=== PATIENT | female | born 1990 | race Caucasian/White ===

== ENCOUNTER → 2021-08-18 | Outpatient (REF) | payer OTHER ==
[2021-08-18 22:00] LABS: GC DNA AMPLIFICATION NEGATIVE (NEGATIVE)
== END ==
LOC: M WUC 19:38
PROVIDERS: ATTEND Physician Assistant
DX: N76.0 Acute vaginitis (principal)

== ENCOUNTER 2021-12-20 07:21 | Day surgery (SDC) | payer OTHER ==
[~2021-12-20] VITALS: Ht 167.6 cm; Wt 71.2 kg
[~2021-12-20 07:21] MED LIST: LR 1,000 ML IV ONE
[2021-12-20 07:51] LABS: HEMATOCRIT 41.3 % (36.0-47.0); HEMOGLOBIN 13.6 g/dl (12.0-15.5); MEAN CORPUSCULAR HEMOGLOBIN 31.3 pg (27.0-33.0); MEAN CORPUSCULAR HGB CONC 32.9 g/dl (32.0-36.5); MEAN CORPUSCULAR VOLUME 95.2 fl (80.0-96.0); PLATELET COUNT, AUTOMATED 272 10^3/uL (150-450); RED BLOOD COUNT 4.34 10^6/uL (4.00-5.40); WHITE BLOOD COUNT 3.6 10^3/uL (4.0-10.0)
[2021-12-20] MEDS ORDERED: propofoL 200 MG/20 ML VIAL As Ordered ONE ×2 (08:09→09:26)
[2021-12-20] MEDS ORDERED: LIDOCAINE 2% 100MG/5ML SDV (FOR ANES.) As Ordered ONE (08:09)
[2021-12-20] MEDS ORDERED: KETOROLAC 60MG 2ML VIAL As Ordered ONE (08:09)
[2021-12-20] MEDS ORDERED: dexameTHASONE 4 MG/ML 1ML VIAL (J1100 PER 1MG) As Ordered ONE (08:09)
[2021-12-20] MEDS ORDERED: ONDANSETRON 4MG/2ML VIAL As Ordered ONE (08:09)
[2021-12-20] MEDS ORDERED: fentaNYL 100 MCG/2 ML INJECTION As Ordered ONE (08:10)
[2021-12-20] MEDS ORDERED: MIDAZOLAM INJ 2MG/2ML VIAL (J2250 PER 1MG) As Ordered ONE (08:10)
[2021-12-20 08:28] LABS: HCG, SERUM QUALITATIVE NEGATIVE (NEGATIVE)
[2021-12-20] MEDS ORDERED: LIDOCAINE W/EPINEPHRINE 1% 20ML VIAL As Ordered ONE (09:02)
[2021-12-20] MEDS ORDERED: IODINE STRONG SOLN 15 ML BTL As Ordered ONE (09:02)
[2021-12-20 10:30] VITALS: BP 111/58
[2021-12-20] MEDS ORDERED: METOCLOPRAMIDE INJ 10MG/2ML VIAL (J2765 PER 1) IV PRN (10:30)
[2021-12-20] MEDS ORDERED: oxyCODONE 5MG TAB PO PRN (10:30)
[2021-12-20] MEDS ORDERED: ONDANSETRON 4MG/2ML VIAL IV PRN (10:30)
[2021-12-20] MEDS ORDERED: LR 1,000 ML IV SCH (10:30)
== END 2021-12-20 10:48 | disposition home or self-care (01) ==
LOC: M SDC 07:21
PROVIDERS: ATTEND Obstetrics & Gynecology
DX: N87.1 Moderate cervical dysplasia (principal)
CPT/HCPCS: 36415; 57522; 84703; 85027; 88307; J1100; J1885; J2250; J2405; J3010

== ENCOUNTER 2022-04-08 08:05 | Emergency (ER) | payer OTHER ==
[~2022-04-08] VITALS: Ht 167.6 cm; Wt 67.4 kg
[2022-04-08] MEDS ORDERED: SILVER NITRATE APPLICATOR (1 = QTY 10) TOP ONE (09:15)
[2022-04-08 10:25] VITALS: BP 117/71
== END 2022-04-08 10:26 | disposition home or self-care (01) ==
LOC: M ED 08:05
DX: S31.41XA Laceration without foreign body of vagina and vulva, initial encounter (principal); Y92.012 Bathroom of single-family (private) house as the place of occurrence of the external cause; Y93.E1 Activity, personal bathing and showering; Y99.9 Unspecified external cause status

== ENCOUNTER 2022-12-05 09:16 | Day surgery (SDC) | payer OTHER ==
[~2022-12-05] VITALS: Ht 167.6 cm; Wt 68.0 kg
[~2022-12-05 09:16] MED LIST changes: +FLUO20CA22 PO; +GNP250TA9 PO; -LR 1,000 ML IV ONE; +MELATAB3 PO; +VITMTA PO; +ZINC30TA2 PO
[2022-12-05 09:58] LABS: HEMATOCRIT 41.9 % (36.0-47.0); HEMOGLOBIN 13.5 g/dl (12.0-15.5)
[2022-12-05] MEDS ORDERED: IODINE STRONG SOLN 15ML BTL As Ordered ONE (11:35)
[2022-12-05] MEDS ORDERED: LIDOCAINE W/EPINEPHRINE 1% 20ML VIAL As Ordered ONE (11:35)
[2022-12-05] MEDS ORDERED: KETOROLAC 60MG 2ML VIAL As Ordered ONE (11:57)
[2022-12-05] MEDS ORDERED: propofoL 200 MG/20 ML VIAL As Ordered ONE (11:57)
[2022-12-05] MEDS ORDERED: LIDOCAINE 2% 100MG/5ML SDV (FOR ANES.) As Ordered ONE (11:57)
[2022-12-05] MEDS ORDERED: MIDAZOLAM INJ 2MG/2ML VIAL As Ordered ONE (11:57)
[2022-12-05] MEDS ORDERED: fentaNYL 100 MCG/2 ML INJECTION As Ordered ONE (11:57)
[2022-12-05] MEDS ORDERED: ONDANSETRON 4MG 2ML VIAL As Ordered ONE (11:57)
[2022-12-05] MEDS ORDERED: oxyCODONE 5MG TAB PO PRN (12:55)
[2022-12-05] MEDS ORDERED: METOCLOPRAMIDE INJ 10MG/2ML VIAL IV PRN (12:55)
[2022-12-05] MEDS ORDERED: LR 1,000 ML IV SCH (12:55)
[2022-12-05] MEDS ORDERED: MORPHINE 2 MG/ML 1ML VIAL IV PRN (12:55)
[2022-12-05] MEDS ORDERED: fentaNYL 100 MCG/2 ML INJECTION IV PRN (12:55)
[2022-12-05] MEDS ORDERED: ONDANSETRON 4MG 2ML VIAL IV PRN (12:55)
[2022-12-05] MEDS ORDERED: MEPERIDINE 25 MG/ML 1ML VIAL IV PRN (12:55)
[2022-12-05] MEDS ORDERED: KETOROLAC 30 MG/ML 1ML VIAL IV ONE (13:10)
[2022-12-05 13:25] VITALS: BP 131/78
== END 2022-12-05 13:51 | disposition home or self-care (01) ==
LOC: M SDC 09:16
PROVIDERS: ATTEND Obstetrics & Gynecology
DX: N87.0 Mild cervical dysplasia (principal); F41.9 Anxiety disorder, unspecified; F32.A Depression, unspecified; Z79.899 Other long term (current) drug therapy
CPT/HCPCS: 36415; 57522; 81025; 85014; 85018; 86850; 86900; 86901; 88305; 88307; J1100; J1885; J2250; J2405; J3010